=== PATIENT | female | born 1965 | race Caucasian/White ===

== ENCOUNTER 2024-06-14 09:38 | Day surgery (SDC) | payer BC ==
[2024-06-07 14:35] VITALS: BMI 26.9
[2024-06-14] MEDS ORDERED: PROPOFOL 120 ML ONE (12:27)
[2024-06-14 13:02] VITALS: RESP 20
[2024-06-14 15:49] VITALS: BP 104/62; PULSE 72; TEMP 98.9
== END 2024-06-14 13:15 | disposition home or self-care (01) ==
LOC: FASU-ENDO 09:38
PROVIDERS: ATTEND Internal Medicine Gastroenterology
PROC: 0DJD8ZZ Inspection of Lower Intestinal Tract, Via Natural or Artificial Opening Endoscopic (ICD-10-PCS; principal; 2024-06-14 12:28)
DX: Z12.11 Encounter for screening for malignant neoplasm of colon (principal); K64.1 Second degree hemorrhoids